=== PATIENT | male | born 2000 | race Caucasian/White ===

== ENCOUNTER 2024-07-20 21:12 | Emergency (ER) | payer SELFPAY ==
[~2024-07-20] VITALS: Ht 190.5 cm; Wt 133.8 kg
[2024-07-20 21:20] VITALS: BP 163/97; PULSE 94; RESP 16; TEMP 98.3; O2SAT 98
--- NOTE | 2024-07-20 21:24 | NUR ---
PT AMBULATES TO BED 2 FOR MSE
[2024-07-20 21:36] VITALS: O2SAT 98
--- NOTE | 2024-07-20 21:40 | NUR ---
PT C/O CHEST PAIN 6/10 X 3 DAYS. PAIN RADIATES TO OSMANY AREA AND NECK. STATES PAIN GETS WORSE WHEN HE EATS ACIDIC AND FATTY FOODS. NO C/O SOB
[2024-07-20] MEDS ORDERED: SUCR1TAB56 PO (22:04)
[2024-07-20] MEDS ORDERED: FAMO-90 PO (22:04)
[2024-07-20] MEDS: ALUMINUM HYD/MAG/SIMETHICONE 30 ML UDC PO ONE (22:26)
[2024-07-20 22:38] VITALS: BP 163/97; PULSE 94; RESP 16; TEMP 98.3; O2SAT 98
--- NOTE | 2024-07-20 22:39 | NUR ---
Patient discharged with v/s stable. Written and verbal after care instructions given and explained. Patient verbalized understanding. Ambulatory with steady gait. All questions addressed prior to discharge. Advised to follow up with PMD.
== END 2024-07-20 22:38 | disposition home or self-care (01) ==
LOC: MED 21:12
DX: K21.9 Gastro-esophageal reflux disease without esophagitis (principal); R03.0 Elevated blood-pressure reading, without diagnosis of hypertension; Z79.899 Other long term (current) drug therapy
CPT/HCPCS: 93005; 99283